=== PATIENT | female | born 1980 | race Caucasian/White ===

== ENCOUNTER 2020-08-13 09:03 | Outpatient (REF) | payer OTHER, SELFPAY ==
[2020-08-13 11:04] LABS: MANUAL DIFF FLAG NO
[2020-08-13 11:30] LABS: Basophils Percent Auto 0.4 % (0-2); Eosinophils Absolute Auto 0.1 X10*3/uL (0.0-0.4); Eosinophils Percent Auto 1.7 % (0-4); Hematocrit 33.4 % (37-47); Hemoglobin 10.6 g/dl (12.0-16.0); Imm Gran Abs Auto 0.03 X10*3/uL (0.00-0.03); Imm Gran Pct Auto 0.4 % (0.0-0.4); Lymphocytes Absolute Auto 2.3 X10*3/uL (1.2-4.9); Lymphocytes Percent Auto 29.9 % (20-40); Mean Corpuscular HGB Conc 31.7 g/dl (31.0-35.0); Mean Corpuscular Volume 97.7 fL (80-98); Mean Platelet Volume 10.7 fL (9.4-12.3); Monocytes Absolute Auto 0.5 X10*3/uL (0.1-1.2); Monocytes Percent Auto 6.2 % (2-11); Neutrophils Absolute Auto 4.8 X10*3/uL (2.0-8.3); Neutrophils Percent Auto 61.4 % (45-73); Platelet Count 315 X10*3/uL (160-400); Red Blood Count 3.42 X10*6/uL (4.20-5.50); Red Cell Distribution Width 12.7 % (11.0-16.0); White Blood Count 7.8 X10*3/uL (4.8-10.8)
[2020-08-13 12:09] LABS: TSH reflex Free T4 1.26 uIU/mL (0.32-4.0); Vitamin D 25-OH Total 55.6 ng/mL (>30)
[2020-08-13 12:13] LABS: Alanine Aminotransferase 15 U/L (0-31); Albumin Level 4.4 g/dL (3.5-5.0); Alkaline Phosphatase 67 U/L (39-117); Anion Gap 12 (12-20); Aspartate Amino Transferase 15 U/L (5-31); Bilirubin Total 0.7 mg/dL (0.0-1.0); Blood Urea Nitrogen 21 mg/dL (9-16); Calcium 8.9 mg/dL (8.4-10.2); Carbon Dioxide 26 mmol/L (22-29); Chloride 106 mmol/L (96-108); Cholesterol 167 mg/dL; Estimated Glomerular Filt Rate > 60; Glucose Fasting 95 mg/dL (60-99); HDL Cholesterol 43 mg/dL; LDL Cholesterol Calculated 107 mg/dl; Potassium 3.9 mmol/L (3.3-5.1); Sodium 140 mmol/L (135-145); Total Protein 7.5 g/dL (6.5-8.0); Triglycerides 87 mg/dL
[2020-08-13 12:20] LABS: Folate 10.4 ng/mL (> or = 4.0); Vitamin B12 387 pg/mL (200-900)
== END 2020-08-13 09:04 | disposition home or self-care (01) ==
LOC: HO.HMGCLDS 09:03
PROVIDERS: PCP Internal Medicine; Visit Provider Internal Medicine
DX: Z00.01 Encounter for general adult medical examination with abnormal findings (principal); F32.9 Major depressive disorder, single episode, unspecified; R53.83 Other fatigue
CPT/HCPCS: 36415; 80053; 80061; 82306; 82607; 82746; 84443; 85025

== ENCOUNTER 2021-07-30 09:53 | Outpatient (RCR) | payer OTHER, SELFPAY ==
--- NOTE | 2021-12-18 10:29 | MHC.PT.DC ---
[facility] [place] Office [place] Office [place] Office [address] Rom Saini [address] [phone] F: [phone] F: [phone] F: [phone] F: [phone] Physical Therapy Discharge Report Diagnosis: low back pain Date of Surgery: none. Date of Evaluation: 07/30/21 Date of Discharge: 08/31/21 Treatments to Date: 1 Cancellations to Date: No Shows to Date: Discharge Status: Patient Elected to Stop Discharge Summary: Patient is a 41 year old R handed female who presents with s/s consistent with low back pain. She works with daily job demands including sitting, lifting. She is switching jobs next week to a job where more standing is required. Patient past medical history is unremarkable. Current impairments include pain, posture, ROM, strength, activity tolerance and functional mobility. Functional limitations include decreased ability to walk, sit, stand, lift, squat and work. Patient is motivated with good rehab potential. Skilled PT will address impairments and functional limitations in order to achieve goals. Electronically signed by: Ronny Weaver, PT Please sign and return to therapist. Thank you for your referral.
== END 2021-12-18 10:30 | disposition home or self-care (01) ==
LOC: HO.PTCHIC 09:53
PROVIDERS: PCP Internal Medicine; Visit Provider Internal Medicine
DX: M54.50 Low back pain, unspecified (principal); M99.04 Segmental and somatic dysfunction of sacral region
CPT/HCPCS: 97110; 97140; 97161

== ENCOUNTER 2022-12-11 10:52 | Outpatient (AMB) | payer OTHER, SELFPAY ==
[2022-12-11 10:55] VITALS: BP 108/64; PULSE 67; O2SAT 98; BMI 28.2
--- NOTE | 2022-12-11 10:55 | A.OFFPC_ITS ---
Vital Signs 12/11/22 10:55 Height 5 ft 3 in Weight 159 lb BMI 28.2 BP 108/64 Blood Pressure Location Lt brachial Position Sitting Pulse 67 Pulse Source Pulse Oximeter Pulse Oximetry (%) 98 Intake Visit Reasons: PE Intake Note: pt is here for physical exam, needs referral for OBGYN due for pap [employer] Required: No Allergies No Known Allergies Allergy (Verified 12/11/22 11:29) Medication List - Last Reconciled 12/11/22 by Kathi Salazar MD bupropion HCl 150 mg PO DAILY cholecalciferol (vitamin D3) 125 mcg PO DAILY citalopram 30 mg (1.5 x 20 mg) PO DAILY cranberry 500 mg PO DAILY ferrous fumarate 325 mg PO DAILY Tobacco use date assessed: 12/11/22 Dental Screening Dental Screen Date: 12/11/22 Did you have a dental visit in the last 12 months?: No Did you have a dental problem in the last 6 months where you did not have access to dental care?: No Was dental information given to patient?: Yes HPI PE HPI Details 42-year-old lady here today for physical exam. She has history of anemia, takes her iron supplements irregularly. Denies any headaches, no lightheadedness or chest pain or shortness of breath. She is overdue for her screening mammogram and cervical cancer screening Takes citalopram and bupropion for depression and anxiety which is stable and controlled present treatment. Complaining of intermittent episodes of abdominal cramping, accompanied by some nausea and 1 episode of vomiting. This is unrelated to food intake, denies any accompanying fever, no urinary symptoms, no blood in stool. Symptoms has been present now for the last several days, [facility] Medical History Cervical cancer screening Abdominal cramping History of colitis Anemia Breast cancer screening by mammogram Depression Surgical History History of Family History Maternal Grandmother Lung cancer Mother Lung cancer Hypothyroidism Father Essential hypertension Social History Housing: House Alcohol intake: current Alcohol intake frequency: holidays/special occasions only Patient Tobacco Use Status: Never used Tobacco e-Cigarette/Vaping Use: Never Used service: No Current occupational status: employed Current occupation: [employer] Cognitive needs: No Hearing needs: No Vision needs: Yes Female Reproductive History Menstrual Duration of menses: 3-5 days Date of last menstrual period: 11/15/22 control method: none Questionnaire PHQ-9 Over the last 2 weeks, how often have you been bothered by any of the following problems? 1. Little interest or pleasure in doing things: not at all 2. Feeling down, depressed, or hopeless: not at all 3. Trouble falling or staying asleep, or sleeping too much: more than half the days 4. Feeling tired or having little energy: nearly every day 5. Poor appetite or overeating: not at all 6. Feeling bad about yourself - or that you are a failure or have let yourself or your family down: not at all 7. Trouble concentrating on things, such as reading the newspaper or watching television: not at all 8. Moving or speaking so slowly that other people could have noticed. Or the opposite - being so fidgety or restless that you have been moving around a lot more than usual: not at all 9. Thoughts that you would be better off or of hurting yourself in some way: not at all Total score: 5 Depression Screening Interpretation: Positive Depression Screening Follow-up: Existing condition and In treatment 55065 - PHQ-9 Billing: Yes Source: Developed by Drs. Destin Zaidi, Lavonne Squires, Darion Mendoza and colleagues, with an educational jackson from [employer]. Thrive Questionnaire Date Thrive assessed: 12/11/22 I am a: Patient What is your living situation today?: I have a steady place to live Within the past 12 months, did the food you bought not last and you didn't have the money to get more?: Never true Within the past 12 months, did you worry whether your food would run out before you got money to buy more?: Never true Do you have trouble paying for medicines?: No Do you have trouble getting transportation to medical appointments?: No Do you have trouble paying your heating and electricity bill?: No Do you have trouble taking care of your child, family member or friend?: No Do you have trouble with day-to-day activities such as bathing, preparing meals, shopping, managing finances, etc.?: No Are you currently unemployed and looking for a job?: No Are you interested in more education?: No AUDIT C Alcohol Use Questionnaire (AUDIT-C) 1. How often do you have a drink containing alcohol?: Never Total Score: 0 SHYANNE-7 AMB Questionnaire SHYANNE-7 Date SHYANNE - 7 assessed: 12/11/22 Feeling nervous, anxious, or on edge: 1 = Several days Not being able to stop or control worryin = Several days Worrying too much about different things: 1 = Several days Trouble relaxin = Not at all Being so restless that it is hard to sit still: 0 = Not at all Becoming easily annoyed or irritable: 1 = Several days Feeling afraid as if something awful might happen: 0 = Not at all Total SHYANNE-7 score (0-4 normal; 5-9 mild; 10-14 moderate; 15-21 severe): 4 Source: Developed by Drs. Destin Zaidi, Lavonne Squires, Darion Mendoza and colleagues, with an educational jackson from [employer]. SHYANNE-7 Assessment Billing SHYANNE-7 Assessment Tool: SHYANNE-7 Assessment 69557 Review of Systems Const Denies body aches, Denies fever(s), Denies headache(s) and Denies weakness Eyes Denies change in vision ENT Denies dizziness, Denies headache(s), Denies nasal congestion, Denies nasal discharge and Denies sore throat Card Denies chest pain, Denies lightheadedness, Denies palpitations and Denies dyspnea Resp Denies chest congestion, Denies cough, Denies dyspnea and Denies wheezing GI Denies change in bowel habits and Denies heartburn Denies hematuria, Denies urinary frequency, Denies dysuria and Denies urinary urgency Musc Reports no additional complaints Skin/Breast Denies breast pain, Denies breast mass, Denies lesions and Denies rash Neuro Denies dizziness, Denies headache(s) and Denies weakness Psych Reports as per HPI Endo Denies polydipsia, Denies polyuria and Denies palpitations Noman/Lymph Denies easy bruising Aller/Immun Denies seasonal rhinorrhea and Denies wheezing Physical exam (Primary Care) Vital Signs: Last Vital Signs Pulse 67 12/11/22 10:55 BP 108/64 12/11/22 10:55 Pulse Ox 98 12/11/22 10:55 BMI result Body Mass Index 28.2 Tobacco/Smoking Status: Tobacco use Status Tobacco use date assessed 12/11/22 12/11/22 10:57 Patient Tobacco Use Status Never used Tobacco 12/11/22 11:06 e-Cigarette/Vaping Use Never Used 12/11/22 10:57 PHQ-9: PHQ-9 Score PHQ-9: Total score 5 12/13/22 17:28 Depression Screening Interpretation: Positive Depression Screening Follow-up: Existing condition and In treatment Thrive Assessment: Date of Thrive Assessment Date Thrive assessed 12/11/22 12/11/22 11:58 Const General: no acute distress and alert Orientation/consciousness: patient oriented x3 HENMT Head: Yes normocephalic Ears: external ears normal General nose exam: Normal external nose present and No nasal discharge present Face and sinus: Yes face symmetric Mouth: Normal oral and palatal mucosa present, oropharynx normal and moist mucous membranes Eyes General: appearance normal, both eyes and all related structures Pupils: Equal, round and reactive pupils present EOM: EOMs intact bilaterally Neck Neck: Yes full ROM, Yes no lymphadenopathy and Yes supple Thyroid: Thyroid normal Chest Chest palpation & inspection: normal inspection of the chest Breast/axilla palpation: normal palpation of the breasts Resp Effort & Inspection: normal respiratory effort and able to speak in complete sentences Auscultation: clear to auscultation bilaterally Cardio Rate: regular rate Rhythm: regular rhythm Heart sounds: S1 normal heart sound present and S2 normal heart sound present GI Palpation (GI): Soft to palpation, nontender, no guarding and no masses Auscultation: normal bowel sounds General: Yes no CVA tenderness Back/Spine/Pelvis Back: no CVA tenderness and No back tenderness Skin General skin exam: no rashes or lesions noted Neuro General: patient oriented x3, gait normal, moves all extremities, Normal light touch and pain sensation, no focal motor deficits and CN's II-XI intact bilaterally Cranial nerves: Yes Equal, round and reactive pupils present Cognition (Neuro): normal cognition Gait exam (Neuro): Normal gait present Motor exam (neuro): 5/5 motor strength present throughout Extrem General: Yes normal to inspection, Yes full ROM, Yes no joint enlargement, Yes no pedal edema and Yes normal gait Psych Appearance: grossly normal and well kempt Mental Status: mental status grossly normal Speech and movement: Normal speech and movement present Affect: normal affect Attitude: cooperative Thought process: Normal thought process present Thought content: Normal thought content present Assessment and Plan Assessment & Plan (1) Annual visit for general adult medical examination with abnormal findings: Code(s): Z00.01 - Encounter for general adult medical examination with abnormal findings Plan: Will check appropriate labs. Recommended dental visit every 6 months and regular eye exams, at least every 2 years. Take adequate calcium in diet and vitamin-D 3 at 2000 IU per cap once a day, in addition to weight-bearing exercises to help maintain good muscle tone and weight control. Instructed to do self-breast exam, and recommended to get yearly mammogram, patient states she will schedule own appointment, referred to OBGYN for her routine Pap and pelvic exam. She also has been referred for a screening colonoscopy, (2) Abdominal cramping: Code(s): R10.9 - Unspecified abdominal pain Plan: Referred to gastroenterology for further evaluation management, ordered CBC and electrolytes as well as liver enzymes (3) History of colitis: Code(s): Z87.19 - Personal history of other diseases of the digestive system Plan: Referral to GI Clinic for further evaluation management, will be due for screening colonoscopy already (4) Nausea and vomiting: Code(s): R11.2 - Nausea with vomiting, unspecified Qualifiers: Vomiting type: unspecified Qualified Code(s): R11.2 - Nausea with vomiting, unspecified (5) Cervical cancer screening: Code(s): Z12.4 - Encounter for screening for malignant neoplasm of cervix (6) Anemia: Code(s): D64.9 - Anemia, unspecified Qualifiers: Anemia type: iron deficiency Iron deficiency anemia type: unspecified iron deficiency Qualified Code(s): D50.9 - Iron deficiency anemia, unspecified Plan: Check CBC again, advised to continue taking ferrous fumarate (7) Depression: Code(s): F32.9 - Major depressive disorder, single episode, unspecified Qualifiers: Depression Type: major depressive disorder Major depression recurrence: recurrent Active/Remission status: in partial remission Qualified Code(s): F33.41 - Major depressive disorder, recurrent, in partial remission Plan: Controlled with current treatment, continued on bupropion and citalopram Orders: Orders Alanine Aminotransferase 12/11/22 D64.9 - Anemia, unspecified, F32.9 - Major depressive disorder, single episode, unspecified, Z00.01 - Encounter for general adult medical examination with abnormal findings, Z87.19 - Personal history of other diseases of the digestive system Aspartate Amino Transferase 12/11/22 D64.9 - Anemia, unspecified, F32.9 - Major depressive disorder, single episode, unspecified, Z00.01 - Encounter for general adult medical examination with abnormal findings, Z87.19 - Personal history of other diseases of the digestive system Basic Metabolic Panel Fasting 12/11/22 D64.9 - Anemia, unspecified, F32.9 - Major depressive disorder, single episode, unspecified, Z00.01 - Encounter for general adult medical examination with abnormal findings, Z87.19 - Personal history of other diseases of the digestive system Lipid Panel 12/11/22 D64.9 - Anemia, unspecified, F32.9 - Major depressive disorder, single episode, unspecified, Z00.01 - Encounter for general adult medical examination with abnormal findings, Z87.19 - Personal history of other diseases of the digestive system Complete Blood Count Auto Diff 12/11/22 D64.9 - Anemia, unspecified, F32.9 - Major depressive disorder, single episode, unspecified, Z00.01 - Encounter for general adult medical examination with abnormal findings, Z87.19 - Personal history of other diseases of the digestive system Vitamin D 25-OH Total 12/11/22 D64.9 - Anemia, unspecified, F32.9 - Major depressive disorder, single episode, unspecified, Z00.01 - Encounter for general adult medical examination with abnormal findings, Z87.19 - Personal history of other diseases of the digestive system Referrals Gastroenterology Referral R10.9 - Unspecified abdominal pain, R11.2 - Nausea with vomiting, unspecified, Z87.19 - Personal history of other diseases of the digestive system [employer]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 Z12.4 - Encounter for screening for malignant neoplasm of cervix Coding Level of Care Code Est Pt Prev Care 40-64y(91164) Diagnoses Annual visit for general adult medical examination with abnormal findings Z00.01 Abdominal cramping R10.9 History of colitis Z87.19 Nausea and vomiting, unspecified vomiting type R11.2 Vomiting type: unspecified Cervical cancer screening Z12.4 Iron deficiency anemia, unspecified iron deficiency anemia type D50.9 Anemia type: iron deficiency Iron deficiency anemia type: unspecified iron deficiency Recurrent major depressive disorder, in partial remission F33.41 Depression Type: major depressive disorder Major depression recurrence: recurrent Active/Remission status: in partial remission Additional Codes SHYANNE-7 Assessment Billing - SHYANNE-7 Assessment Tool: SHYANNE-7 Assessment [id number] ([id number])
== END 2022-12-11 12:28 | disposition home or self-care (01) ==
PROVIDERS: PCP Internal Medicine; Visit Provider Internal Medicine
DX: Z00.01 Encounter for general adult medical examination with abnormal findings (principal); Z87.19 Personal history of other diseases of the digestive system; F33.41 Major depressive disorder, recurrent, in partial remission; R10.9 Unspecified abdominal pain; R11.2 Nausea with vomiting, unspecified; D50.9 Iron deficiency anemia, unspecified
CPT/HCPCS: 99396

== ENCOUNTER 2022-12-11 11:56 | Outpatient (REF) | payer OTHER, SELFPAY ==
[2022-12-11 13:43] LABS: MANUAL DIFF FLAG NO
[2022-12-11 13:52] LABS: Basophils Percent Auto 0.5 % (0-2); Eosinophils Absolute Auto 0.1 X10*3/uL (0.0-0.4); Eosinophils Percent Auto 0.9 % (0-4); Hematocrit 35.1 % (37.0-47.0); Hemoglobin 11.3 g/dl (12.0-16.0); Imm Gran Abs Auto 0.03 X10*3/uL (0.00-0.03); Imm Gran Pct Auto 0.4 % (0.0-0.4); Lymphocytes Absolute Auto 2.6 X10*3/uL (1.2-4.9); Lymphocytes Percent Auto 31.3 % (20-40); Mean Corpuscular HGB Conc 32.2 g/dl (31.0-35.0); Mean Corpuscular Hemoglobin 30.8 pg (27.0-33.0); Mean Corpuscular Volume 95.6 fL (80.0-98.0); Mean Platelet Volume 11.1 fL (9.4-12.3); Monocytes Absolute Auto 0.5 X10*3/uL (0.1-1.2); Neutrophils Percent Auto 60.9 % (45-73); Platelet Count 301 X10*3/uL (160-400); Red Blood Count 3.67 X10*6/uL (4.20-5.50); Red Cell Distribution Width 12.8 % (11.0-16.0); White Blood Count 8.1 X10*3/uL (4.8-10.8)
[2022-12-11 15:35] LABS: Alanine Aminotransferase 11 U/L (0-31); Anion Gap 13 (12-20); Aspartate Amino Transferase 11 U/L (5-31); Blood Urea Nitrogen 16 mg/dL (9-16); Calcium 9.3 mg/dL (8.4-10.2); Carbon Dioxide 26 mmol/L (22-29); Chloride 106 mmol/L (96-108); Cholesterol 153 mg/dL (<200); Estimated Glomerular Filt Rate > 60; Glucose Fasting 86 mg/dL (60-99); HDL Cholesterol 40 mg/dL (>40); LDL Cholesterol Calculated 95 mg/dL (<100); Potassium 3.8 mmol/L (3.3-5.1); Sodium 141 mmol/L (135-145); Triglycerides 93 mg/dL (<150)
[2022-12-11 15:39] LABS: Vitamin D 25-OH Total 57.2 ng/mL (>30)
== END 2022-12-11 11:57 | disposition home or self-care (01) ==
LOC: HO.HMGCLDS 11:56
PROVIDERS: PCP Internal Medicine; Visit Provider Internal Medicine
DX: Z00.01 Encounter for general adult medical examination with abnormal findings (principal); F32.9 Major depressive disorder, single episode, unspecified; D64.9 Anemia, unspecified; Z87.19 Personal history of other diseases of the digestive system
CPT/HCPCS: 36415; 80048; 80061; 82306; 84450; 84460; 85025

== ENCOUNTER 2023-09-22 12:07 | Outpatient (AMB) | payer OTHER, SELFPAY ==
[2023-09-22 12:27] VITALS: BP 102/62; PULSE 76; O2SAT 98; BMI 28.9
--- NOTE | 2023-09-22 12:27 | A.OFFPC_ITS ---
Vital Signs 09/22/23 12:27 Height 5 ft 3 in Weight 163 lb 4 oz BMI 28.9 BP 102/62 Blood Pressure Location Lt brachial Position Sitting Pulse 76 Pulse Source Pulse Oximeter Pulse Oximetry (%) 98 Oxygen Delivery Method Room Air Intake Visit Reasons: Physical Exam Intake Note: Pt is here today for her Annual PE Last pap years ago, unsure where she had it done at. Last flu shot 12/08/17 Allergies No Known Allergies Allergy (Verified 09/22/23 23:19) Medication List - Last Reconciled 09/22/23 by Kathi Salazar MD bupropion HCl SR 150 mg PO DAILY cholecalciferol (vitamin D3) 125 mcg PO DAILY citalopram 30 mg (1.5 x 20 mg) PO DAILY cranberry 500 mg PO DAILY ferrous fumarate 325 mg PO DAILY Tobacco use date assessed: 09/22/23 Dental Screening Dental Screen Date: 09/22/23 Did you have a dental visit in the last 12 months?: No Did you have a dental problem in the last 6 months where you did not have access to dental care?: No Was dental information given to patient?: No HPI Physical Exam HPI Details 43-year-old lady here today for physica l exam. She is due for her screening mammogram and colon cancer screening, and patient states that she has had a Pap several years ago which came back negative. Complains increasing episodes of anxiety attacks and depressed mood. Has been taking her bupropion XL 1 50 mg in the morning before breakfast and citalopram 30 mg daily which she states seems to have stopped helping Noted to be mildly anemic on last labs done. Has had intermittent episodes of dark Od occasionally bloody stools in the past accompanied by lower abdominal cramping. [facility] Medical History (Updated 09/22/23 @ 23:25 by Kathi Salazar MD) Cervical cancer screening Abdominal cramping History of colitis Anemia Breast cancer screening by mammogram Depression Surgical History History of Family History Maternal Grandmother Lung cancer Mother Lung cancer Hypothyroidism Father Essential hypertension Social History Housing: House Alcohol intake: current Alcohol intake frequency: holidays/special occasions only Patient Tobacco Use Status: Never used Tobacco e-Cigarette/Vaping Use: Never Used service: No Current occupational status: employed Current occupation: [employer] Cognitive needs: No Hearing needs: No Vision needs: Yes Female Reproductive History Menstrual Duration of menses: 3-5 days Questionnaire PHQ-9 Over the last 2 weeks, how often have you been bothered by any of the following problems? 1. Little interest or pleasure in doing things: not at all 2. Feeling down, depressed, or hopeless: several days 3. Trouble falling or staying asleep, or sleeping too much: more than half the days 4. Feeling tired or having little energy: nearly every day 5. Poor appetite or overeating: not at all 6. Feeling bad about yourself - or that you are a failure or have let yourself or your family down: not at all 7. Trouble concentrating on things, such as reading the newspaper or watching television: not at all 8. Moving or speaking so slowly that other people could have noticed. Or the opposite - being so fidgety or restless that you have been moving around a lot more than usual: not at all 9. Thoughts that you would be better off or of hurting yourself in some way: not at all Total score: 6 Depression Screening Interpretation: Positive Depression Screening Follow-up: Existing condition, In treatment and Change in Medication Depression Screening Done: Yes 08485 - PHQ-9 Billing: Yes Source: Developed by Drs. Destin Zaidi, Lavonne Squires, Darion Mendoza and colleagues, with an educational jackson from [employer]. Thrive Questionnaire Date Thrive assessed: 09/22/23 I am a: Patient What is your living situation today?: I have a steady place to live Within the past 12 months, did the food you bought not last and you didn't have the money to get more?: Never true Within the past 12 months, did you worry whether your food would run out before you got money to buy more?: Never true Do you have trouble paying for medicines?: No Do you have trouble getting transportation to medical appointments?: No Do you have trouble paying your heating and electricity bill?: No Do you have trouble taking care of your child, family member or friend?: No Do you have trouble with day-to-day activities such as bathing, preparing meals, shopping, managing finances, etc.?: No Are you currently unemployed and looking for a job?: No Are you interested in more education?: No THRIVE Score: 0 AUDIT C Alcohol Use Questionnaire (AUDIT-C) 1. How often do you have a drink containing alcohol?: Never 3. How often do you have six or more drinks on one occasion?: Never Total Score: 0 Score Reviewed/Action Taken: Yes SHYANNE-7 AMB Questionnaire SHYANNE-7 Date SHYANNE - 7 assessed: 09/22/23 Feeling nervous, anxious, or on edge: 1 = Several days Not being able to stop or control worryin = Several days Worrying too much about different things: 1 = Several days Trouble relaxin = Several days Being so restless that it is hard to sit still: 0 = Not at all Becoming easily annoyed or irritable: 0 = Not at all Feeling afraid as if something awful might happen: 1 = Several days Total SHYANNE-7 score (0-4 normal; 5-9 mild; 10-14 moderate; 15-21 severe): 5 Source: Developed by Drs. Destin Zaidi, Lavonne Squires, Darion Mendoza and colleagues, with an educational jackson from [employer]. SHYANNE-7 Assessment Billing SHYANNE-7 Assessment Tool: SHYANNE-7 Assessment 53146 Review of Systems Const Denies body aches, Denies fever(s), Denies headache(s) and Denies weakness Eyes Denies change in vision ENT Denies dizziness, Denies headache(s), Denies nasal congestion, Denies nasal discharge and Denies sore throat Card Denies chest pain, Denies lightheadedness, Denies palpitations and Denies dyspnea Resp Denies chest congestion, Denies cough, Denies dyspnea and Denies wheezing GI Denies change in bowel habits and Denies heartburn Denies hematuria, Denies urinary frequency, Denies dysuria and Denies urinary urgency Musc Reports no additional complaints Skin/Breast Denies breast pain, Denies breast mass, Denies lesions and Denies rash Neuro Denies dizziness, Denies headache(s) and Denies weakness Psych Reports as per HPI Endo Denies polydipsia, Denies polyuria and Denies palpitations Noman/Lymph Denies easy bruising Aller/Immun Denies seasonal rhinorrhea and Denies wheezing Physical exam (Primary Care) Vital Signs: Last Vital Signs Pulse 76 09/22/23 12:27 BP 102/62 09/22/23 12:27 Pulse Ox 98 09/22/23 12:27 Oxygen Delivery Method Room Air 09/22/23 12:27 BMI result Body Mass Index 28.9 Tobacco/Smoking Status: Tobacco use Status Tobacco use date assessed 09/22/23 09/22/23 12:31 Patient Tobacco Use Status Never used Tobacco 09/22/23 12:30 e-Cigarette/Vaping Use Never Used 09/22/23 12:30 Depression Screening Interpretation: Positive Depression Screening Follow-up: Existing condition, In treatment and Change in Medication Thrive Assessment: Date of Thrive Assessment Date Thrive assessed 12/11/22 09/22/23 12:30 Const General: no acute distress and alert Orientation/consciousness: patient oriented x3 HENMT Head: Yes normocephalic Ears: external ears normal General nose exam: Normal external nose present and No nasal discharge present Face and sinus: Yes face symmetric Mouth: Normal oral and palatal mucosa present, oropharynx normal and moist mucous membranes Eyes General: appearance normal, both eyes and all related structures Pupils: Equal, round and reactive pupils present EOM: EOMs intact bilaterally Neck Neck: Yes full ROM, Yes no lymphadenopathy and Yes supple Thyroid: Thyroid normal Chest Chest palpation & inspection: normal inspection of the chest Breast/axilla palpation: normal palpation of the breasts Resp Effort & Inspection: normal respiratory effort and able to speak in complete sentences Auscultation: clear to auscultation bilaterally Cardio Rate: regular rate Rhythm: regular rhythm Heart sounds: S1 normal heart sound present and S2 normal heart sound present GI Palpation (GI): Soft to palpation, nontender, no guarding and no masses Auscultation: normal bowel sounds General: Yes no CVA tenderness Back/Spine/Pelvis Back: no CVA tenderness and No back tenderness Skin General skin exam: no rashes or lesions noted Neuro General: patient oriented x3, gait normal, moves all extremities, Normal light touch and pain sensation, no focal motor deficits and CN's II-XI intact bilaterally Cranial nerves: Yes Equal, round and reactive pupils present Cognition (Neuro): normal cognition Gait exam (Neuro): Normal gait present Motor exam (neuro): 5/5 motor strength present throughout Extrem General: Yes normal to inspection, Yes full ROM, Yes no joint enlargement, Yes no pedal edema and Yes normal gait Psych Appearance: grossly normal and well kempt Mental Status: mental status grossly normal Speech and movement: Normal speech and movement present Affect: normal affect Attitude: cooperative Thought process: Normal thought process present Thought content: Normal thought content present Assessment and Plan Assessment & Plan (1) Annual visit for general adult medical examination with abnormal findings: Code(s): Z00.01 - Encounter for general adult medical examination with abnormal findings Plan: Will check appropriate labs. Recommended dental visit every 6 months and regular eye exams, at least every 2 years. Take adequate calcium in diet and vitamin-D 3 at 2000 IU per cap once a day, in addition to weight-bearing exercises to help maintain good muscle tone and weight control. Instructed to do self-breast exam, and recommended to get yearly mammogram, ordered. She states that she has had a Pap smear several years ago, with normal findings, never had a colon cancer screening, referred to GI for her initial screening colonoscopy. (2) Anemia: Code(s): D64.9 - Anemia, unspecified Qualifiers: Anemia type: iron deficiency Iron deficiency anemia type: unspecified iron deficiency Qualified Code(s): D50.9 - Iron deficiency anemia, unspecified Plan: CBC and iron profile ordered. Referred to GI Clinic for her initial screening colonoscopy. (3) Encounter for screening for malignant neoplasm of colon: Code(s): Z12.11 - Encounter for screening for malignant neoplasm of colon Plan: Referred to GI for her initial screening colonoscopy (4) History of bloody stools: Code(s): Z87.19 - Personal history of other diseases of the digestive system Plan: GI consult obtained, labs ordered to check for iron profile, CBC (5) Depression: Code(s): F32.9 - Major depressive disorder, single episode, unspecified Qualifiers: Depression Type: major depressive disorder Major depression recurrence: recurrent Active/Remission status: in partial remission Qualified Code(s): F33.41 - Major depressive disorder, recurrent, in partial remission Plan: Increase bupropion HCL XL to 300 mg per tablet to take once a day in a.m., and change citalopram dose back to 20 mg daily. Declines referral for counseling, will see her back for follow-up Orders: Orders IRON PROFILE Today D50.9 - Iron deficiency anemia, unspecified, Z00.01 - Encounter for general adult medical examination with abnormal findings, Z13.1 - Encounter for screening for diabetes mellitus, Z13.220 - Encounter for screening for lipoid disorders Lipid Panel Today D50.9 - Iron deficiency anemia, unspecified, Z00.01 - Encounter for general adult medical examination with abnormal findings, Z13.1 - Encounter for screening for diabetes mellitus, Z13.220 - Encounter for screening for lipoid disorders Aspartate Amino Transferase Today D50.9 - Iron deficiency anemia, unspecified, Z00.01 - Encounter for general adult medical examination with abnormal findings, Z13.1 - Encounter for screening for diabetes mellitus, Z13.220 - Encounter for screening for lipoid disorders Vitamin D 25-OH Total Today D50.9 - Iron deficiency anemia, unspecified, Z00.01 - Encounter for general adult medical examination with abnormal findings, Z13.1 - Encounter for screening for diabetes mellitus, Z13.220 - Encounter for screening for lipoid disorders MM tomosynthesis screening BI Today Z12.31 - Encounter for screening mammogram for malignant neoplasm of breast Complete Blood Count Auto Diff Today D50.9 - Iron deficiency anemia, unspecified, Z00.01 - Encounter for general adult medical examination with abnormal findings, Z13.1 - Encounter for screening for diabetes mellitus, Z13.220 - Encounter for screening for lipoid disorders Alanine Aminotransferase Today D50.9 - Iron deficiency anemia, unspecified, Z00.01 - Encounter for general adult medical examination with abnormal findings, Z13.1 - Encounter for screening for diabetes mellitus, Z13.220 - Encounter for screening for lipoid disorders Basic Metabolic Panel Fasting Today D50.9 - Iron deficiency anemia, unspecified, Z00.01 - Encounter for general adult medical examination with abnormal findings, Z13.1 - Encounter for screening for diabetes mellitus, Z13.220 - Encounter for screening for lipoid disorders Referrals Gastroenterology Referral Z12.11 - Encounter for screening for malignant neoplasm of colon, Z87.19 - Personal history of other diseases of the digestive system Medications: New bupropion HCl XL 300 mg PO QAM 90 tabs 1RF Changed From citalopram 30 mg (1.5 x 20 mg) PO DAILY 135 tabs 1RF To citalopram 20 mg PO DAILY 90 tabs 1RF Discontinued bupropion HCl SR Discontinued Reason: Doctor's Order 150 mg PO DAILY 90 tabs 1RF Coding Level of Care Code Est Pt Prev Care 40-64y(51585) Diagnoses Annual visit for general adult medical examination with abnormal findings Z00.01 Iron deficiency anemia, unspecified iron deficiency anemia type D50.9 Anemia type: iron deficiency Iron deficiency anemia type: unspecified iron deficiency Encounter for screening for malignant neoplasm of colon Z12.11 History of bloody stools Z87.19 Recurrent major depressive disorder, in partial remission F33.41 Depression Type: major depressive disorder Major depression recurrence: recurrent Active/Remission status: in partial remission Additional Codes SHYANNE-7 Assessment Billing - SHYANNE-7 Assessment Tool: SHYANNE-7 Assessment [id number] ([id number])
== END 2023-09-22 13:03 | disposition home or self-care (01) ==
PROVIDERS: PCP Internal Medicine; Visit Provider Internal Medicine
DX: Z00.00 Encounter for general adult medical examination without abnormal findings (principal); D50.9 Iron deficiency anemia, unspecified; F33.41 Major depressive disorder, recurrent, in partial remission; Z12.11 Encounter for screening for malignant neoplasm of colon; Z87.19 Personal history of other diseases of the digestive system
CPT/HCPCS: 96127; 99396

== ENCOUNTER 2023-10-22 08:25 | Outpatient (AMB) | payer OTHER, SELFPAY ==
--- NOTE | 2023-10-22 09:18 | A.OFFPC_ITS ---
Intake Visit Reasons: f/u anxiety & depression [phone] Allergies No Known Allergies Allergy (Verified 10/22/23 10:13) Medication List - Last Reconciled 10/22/23 by Kathi Salazar MD bupropion HCl XL 150 mg PO QAM cholecalciferol (vitamin D3) 125 mcg PO DAILY citalopram 40 mg PO DAILY cranberry 500 mg PO DAILY ferrous fumarate 325 mg PO DAILY Tobacco use date assessed: 09/22/23 Dental Screening Dental Screen Date: 09/22/23 HPI f/u anxiety & depression [phone] HPI Details 43-year-old lady here today for follow-u p on her anxiety and depr ession. She is currently taking bupropion HCL, but has decreased her dose to 150 mg in the morning as her higher dose was making her few associated in more anxious. She also has upped her citalopram back up again to 40 mg daily in a.m., as the lower dose again was not helping. She has been feeling better now with regards to her mood with the new changes in her medication dosage. [facility] Medical History (Updated 10/22/23 @ 10:32 by Kathi Salazar MD) Depression with anxiety Cervical cancer screening Abdominal cramping History of colitis Anemia Breast cancer screening by mammogram Surgical History History of Family History Maternal Grandmother Lung cancer Mother Lung cancer Hypothyroidism Father Essential hypertension Social History Housing: House Alcohol intake: current Alcohol intake frequency: holidays/special occasions only Patient Tobacco Use Status: Never used Tobacco e-Cigarette/Vaping Use: Never Used service: No Current occupational status: employed Current occupation: [email or web address] Cognitive needs: No Hearing needs: No Vision needs: Yes Questionnaire PHQ-9 Over the last 2 weeks, how often have you been bothered by any of the following problems? 1. Little interest or pleasure in doing things: not at all 2. Feeling down, depressed, or hopeless: several days 3. Trouble falling or staying asleep, or sleeping too much: more than half the days 4. Feeling tired or having little energy: several days 5. Poor appetite or overeating: more than half the days 6. Feeling bad about yourself - or that you are a failure or have let yourself o r your family down: not at all 7. Trouble concentrating on things, such as reading the newspaper or watching television: not at all 8. Moving or speaking so slowly that other people could have noticed. Or the opposite - being so fidgety or restless that you have been moving around a lot more than usual: not at all 9. Thoughts that you would be better off or of hurting yourself in some way: not at all Total score: 6 Depression Screening Interpretation: Positive Depression Screening Follow-up: Existing condition, In treatment, Change in Medication and Community Mental Health Worker F/U Depression Screening Done: Yes 57726 - PHQ-9 Billing: Yes Source: Developed by Drs. Destin Zaidi, Lavonne Squires, Darion Mendoza and colleagues, with an educational jackson from [employer]. Thrive Questionnaire Date Thrive assessed: 09/22/23 SHYANNE-7 AMB Questionnaire SHYANNE-7 Date SHYANNE - 7 assessed: 10/22/23 Feeling nervous, anxious, or on edge: 1 = Several days Not being able to stop or control worryin = Not at all Worrying too much about different things: 2 = More than half the days Trouble relaxin = Not at all Being so restless that it is hard to sit still: 0 = Not at all Becoming easily annoyed or irritable: 2 = More than half the days Feeling afraid as if something awful might happen: 0 = Not at all Total SHYANNE-7 score (0-4 normal; 5-9 mild; 10-14 moderate; 15-21 severe): 5 Source: Developed by Drs. Destin Zaidi, Lavonne Squires, Darion Mendoza and colleagues, with an educational jackson from [employer]. SHYANNE-7 Assessment Billing SHYANNE-7 Assessment Tool: SHYANNE-7 Assessment 49915 Review of Systems Const Denies body aches, Denies fever(s), Denies headache(s) and Denies weakness Eyes Denies change in vision ENT Denies dizziness, Denies headache(s), Denies nasal congestion, Denies nasal discharge and Denies sore throat Card Denies chest pain, Denies lightheadedness, Denies palpitations and Denies dyspnea Resp Denies chest congestion, Denies cough, Denies dyspnea and Denies wheezing GI Denies change in bowel habits and Denies heartburn Denies hematuria, Denies urinary frequency, Denies dysuria and Denies urinary urgency Musc Reports no additional complaints Skin/Breast Denies breast pain, Denies breast mass, Denies lesions and Denies rash Neuro Denies dizziness, Denies headache(s) and Denies weakness Psych Reports as per HPI Endo Denies polydipsia, Denies polyuria and Denies palpitations Noman/Lymph Denies easy bruising Aller/Immun Denies seasonal rhinorrhea and Denies wheezing Physical exam (Primary Care) Tobacco/Smoking Status: Tobacco use Status Tobacco use date assessed 09/22/23 10/22/23 09:19 Patient Tobacco Use Status Never used Tobacco 10/22/23 09:19 e-Cigarette/Vaping Use Never Used 10/22/23 09:19 PHQ-9: PHQ-9 Score PHQ-9: Total score 7 10/22/23 10:36 Depression Screening Interpretation: Positive Depression Screening Follow-up: Existing condition, In treatment, Change in Medication and Community Mental Health Worker F/U Thrive Assessment: Date of Thrive Assessment Date Thrive assessed 09/22/23 10/22/23 09:19 Telehealth Telehealth Telehealth Platform: [employer] Location of provider rendering services: practice address Location of patient: address on file Patient Identification confirmed using: Name, : Yes Telehealth method: video Patient verbally consented to treatment: Yes Patient verbally consented to billing insurance company: Yes Patient informed of any privacy concerns related to visit: Yes Minutes spent on Phone/Video with Pt.: 155 Assessment and Plan Assessment & Plan (1) Depression with anxiety: Code(s): F41.8 - Other specified anxiety disorders Plan: She is currently feeling better on higher dose of citalopram 40 mg daily and lower dose of bupropion now down to 150 mg daily in a.m.. Continue with behavioral techniques to control anxiety and depression. See us back for follow-up in 3 months Medications: New citalopram 40 mg PO DAILY 90 tabs 1RF F33.41 - Major depressive disorder, recurrent, in partial remission, F41.8 - Other specified anxiety disorders bupropion HCl XL 150 mg PO QAM 90 tabs 1RF F41.8 - Other specified anxiety disorders Coding Level of Care Code Tele Est Pt Level 4 (13460) Diagnoses Depression with anxiety F41.8 Additional Codes SHYANNE-7 Assessment Billing - SHYANNE-7 Assessment Tool: SHYANNE-7 Assessment 18595 ([id number])
== END 2023-10-22 17:42 | disposition home or self-care (01) ==
LOC: HO.HMGC 08:25
PROVIDERS: PCP Internal Medicine; Visit Provider Internal Medicine
DX: F41.8 Other specified anxiety disorders (principal)
CPT/HCPCS: 96127; 99214

== ENCOUNTER 2023-11-17 12:00 | Outpatient (AMB) | payer OTHER, SELFPAY ==
--- NOTE | 2023-11-17 12:35 | MHC.OFFWIV ---
Intake Vital Signs 11/17/23 12:36 Weight 164 lb BP 108/70 Blood Pressure Location Lt brachial Position Sitting Pulse 74 Pulse Source Pulse Oximeter Pulse Oximetry (%) 99 Oxygen Delivery Method Room Air Intake Visit Reasons: EP- sores on thighs, appt for derm is far out Intake Note: Patient here for sores on pubic area now causing pain, has been present for a few years on and off. Patient Tobacco Use Status: Never used Tobacco Allergies No Known Allergies Allergy (Verified 11/17/23 12:37) Do you need a note to return to daycare/school/sports/work: Yes HPI EP- sores on thighs, appt for derm is far out HPI Details This note is constructed using voice recognition software. While every effort has been made to ensure accuracy, feed and farm management adviser errors may have been included. The patient is a 43 year old female who presents to the clinic today with source to her pubic region intermittently for the past several years with scarring. She reports the areas to be slightly painful at times, and they sometimes do drain. She is pending a dermatology appointment at the end of November, however did not want to wait any longer for some treatment of this. She is not having fever or chills. There is no current drainage. [facility] Medical History (Updated 10/22/23 @ 10:32 by Kathi Salazar MD) Depression with anxiety Cervical cancer screening Abdominal cramping History of colitis Anemia Breast cancer screening by mammogram Surgical History History of Family History Maternal Grandmother Lung cancer Mother Lung cancer Hypothyroidism Father Essential hypertension Social History Housing: House Alcohol intake: current Alcohol intake frequency: holidays/special occasions only Patient Tobacco Use Status: Never used Tobacco e-Cigarette/Vaping Use: Never Used service: No Current occupational status: employed Current occupation: quality inspection [employer] Cognitive needs: No Hearing needs: No Vision needs: Yes Review of Systems Const All systems reviewed & are unremarkable except as noted in HPI and below Physical Exam Vital Signs: Last Vital Signs Pulse 74 08/21/24 12:36 BP 108/70 11/17/23 12:36 Pulse Ox 99 11/17/23 12:36 Oxygen Delivery Method Room Air 11/17/23 12:36 Const General: cooperative, healthy appearing, comfortable, no acute distress and alert Orientation/consciousness: patient oriented x3 Limitations: no limitations Skin Other: 1 cm nodules oval in shape with scarring present and clear discharge to bilateral femoral region consistant with hydradenitis General skin exam: elasticity normal and turgor normal Neuro General: patient oriented x3 Psych Appearance: grossly normal Mental Status: mental status grossly normal Speech and movement: Normal speech and movement present Affect: normal affect Assessment & Plan Assessment & Plan (1) Hydradenitis: Code(s): L73.2 - Hidradenitis suppurativa Plan: Doxycycline ordered for initial treatment. Advised patient to keep appointment with Dermatology as she likely will require additional treatment for this. Reviewed likelihood that she may require prolonged antimicrobial therapy as is typical for hidradenitis. Advised avoidance of squeezing the lesions as this could produce tunneling and tracking, and worsen be lesions. She may continue with warm compresses for symptomatic management and NSAIDs for pain. Plan See above for full details and plan. Medications: New doxycycline hyclate 100 mg PO BID 20 caps 0RF Coding Level of Care Code Est Pt Level 3 (72119) Diagnoses Hydradenitis L73.2
[2023-11-17 12:36] VITALS: BP 108/70; PULSE 74; O2SAT 99
== END 2023-11-17 13:11 | disposition home or self-care (01) ==
PROVIDERS: PCP Internal Medicine; Visit Provider Registered Nurse
DX: L73.2 Hidradenitis suppurativa (principal)
CPT/HCPCS: 99213